=== PATIENT | female | born 2000 | race Caucasian/White ===

== ENCOUNTER 2024-06-01 10:39 | Inpatient (IN) | payer OTHER ==
[2024-06-01 10:55] VITALS: BMI 37.7
[2024-06-01] MEDS: Lactated Ringer's 1,000 ML IV SCH (11:55)
[2024-06-01] MEDS: Penicillin G Potassium 5 MILL.UNITS in Sodium Chloride 0.9% 100 ML IVPB SCH (12:25)
[2024-06-01] MEDS ORDERED: Ondansetron PF 4 MG/2 ML Vial IVP PRN ×4 (12:27→16:41)
[2024-06-01] MEDS ORDERED: hydrALAZINE 20 MG/ML VIAL SLOW IVP PRN ×2 (12:27→20:21)
[2024-06-01] MEDS ORDERED: Methylergonovine 0.2 MG/ML VIAL IM PRN (12:27)
[2024-06-01] MEDS ORDERED: Lidocaine 1% (PF) 30 ML VIAL SC PRN (12:27)
[2024-06-01] MEDS ORDERED: Tranexamic Acid 1,000 MG/10 ML VIAL IVP PRN (12:27)
[2024-06-01] MEDS ORDERED: Carboprost 250 MCG/ML AMP IM PRN (12:27)
[2024-06-01] MEDS ORDERED: HYDROcodone/Acetaminophen 5/325 mg Tablet PO PRN (12:27)
[2024-06-01] MEDS ORDERED: Ibuprofen 800 MG TAB PO PRN (12:27)
[2024-06-01] MEDS ORDERED: fentaNYL 50 mcg/mL 1 mL Vial SLOW IVP PRN ×2 (12:27→16:41)
[2024-06-01] MEDS ORDERED: Misoprostol 200 MCG TAB PR PRN ×2 (12:27→20:21)
[2024-06-01] MEDS ORDERED: Promethazine HCl 25 MG/ML VIAL IM PRN ×4 (12:27→20:21)
[2024-06-01] MEDS ORDERED: Diphenoxylate HCl/Atropine Tablet PO PRN (12:27)
[2024-06-01] MEDS ORDERED: Acetaminophen 500 MG TAB PO PRN (12:27)
[2024-06-01] MEDS ORDERED: Oxytocin 30 units/NS 500 ML 500 ML IV SCH ×4 (12:30→20:21)
[2024-06-01 12:56] LABS: Hematocrit 37.8 % (34.9-44.5); Hemoglobin 12.4 g/dL (12.0-15.5); Mean Corpuscular HGB CONC 32.8 g/dL (32.0-36.0); Mean Corpuscular Hemoglobin 29.1 pg (27.0-33.0); Mean Corpuscular Volume 88.7 fL (81.6-98.3); Mean Platelet Volume 9.7 fL (7.4-10.4); Platelet Count 205 10x3/uL (150-450); RBC Distribution Width 13.8 % (11.5-14.5); Red Blood Cell (RBC) Count 4.26 10x6/uL (3.90-5.03); White Blood Cell (WBC) Count 10.7 10x3/uL (3.5-10.5)
[2024-06-01 13:25] LABS: Hep B Surf Ag - L&D Non-Reactive S/CO (NonReactive)
[2024-06-01 13:27] LABS: Syphilis Antibody Nonreactive (Nonreactive); Syphilis Antibody Index 0.03 S/CO (<1.00 Non-Reactive)
[2024-06-01] MEDS: Penicillin G Potassium 5 MILL.UNITS VIAL ONE (13:35)
[2024-06-01] MEDS: fentaNYL/Ropivacaine Epidural 100 ML ONE (13:46)
[2024-06-01] MEDS ORDERED: Lactated Ringer's 500 ML IV PRN (14:48)
[2024-06-01] MEDS ORDERED: Acetaminophen 325 MG TAB PO PRN (14:48)
[2024-06-01] MEDS ORDERED: ePHEDrine Sulfate 50 MG/10 ML VIAL SLOW IVP PRN (14:48)
[2024-06-01] MEDS ORDERED: diphenhydrAMINE 50 MG/ML VIAL IVP PRN (14:48)
[2024-06-01] MEDS ORDERED: Moisturizing Cream (Eucerin) 113 GM JAR TOP PRN ×2 (14:48→16:41)
[2024-06-01] MEDS ORDERED: Naloxone HCl 0.4 mg/ml Vial IVP PRN ×4 (14:48→16:41)
[2024-06-01] MEDS ORDERED: Communication Order-Pharmacy FS SCH ×2 (15:00→16:45)
[2024-06-01] MEDS ORDERED: fentaNYL 2 mcg/Ropivacaine 0.2% Epidural 100 ML CADD EPIDURAL SCH (15:00)
[2024-06-01] MEDS ORDERED: Ketorolac Tromethamine 30 MG (1 mL) VIAL IVP PRN (16:41)
[2024-06-01] MEDS ORDERED: Meperidine HCl/PF 25 MG (1 mL) VIAL SLOW IVP PRN (16:41)
[2024-06-01] MEDS ORDERED: Naloxone HCl 0.4 mg/ml Vial IV PRN (16:41)
[2024-06-01] MEDS ORDERED: Ketorolac Tromethamine 30 MG (1 mL) VIAL IVP SCH (16:45)
[2024-06-01] MEDS: CEFAZOLIN 2 GM VIAL ONE (18:30)
[2024-06-01] MEDS: Ondansetron PF 4 MG/2 ML Vial ONE ×2 (18:30→18:31)
[2024-06-01] MEDS: Bicitra 30 ML UDCUP ONE (18:30)
[2024-06-01] MEDS: Azithromycin 500 MG VIAL ONE (18:30)
[2024-06-01] MEDS: Misoprostol 100 MCG TAB PO SCH (18:30)
[2024-06-01] MEDS: Dexamethasone 10 MG/ML VIAL ONE (18:30)
[2024-06-01] MEDS: Penicillin G 2.5 MILL.units 2.5 MILL.UNITS in Premix 1 BAG IVPB SCH (18:31)
[2024-06-01] MEDS: Morphine PF 10 MG/10 ML VIAL ONE (18:31)
[2024-06-01] MEDS: Ketorolac Tromethamine 30 MG (1 mL) VIAL ONE (18:31)
[2024-06-01] MEDS: Oxytocin 10 UNITS/ML VIAL ONE (18:31)
[2024-06-01] MEDS: PHENYLEPHRINE-NS 100 MCG/ML 10 ML SYRINGE ONE (18:31)
[2024-06-01] MEDS ORDERED: Bupivacaine/Epinephrine 0.25% 30 ML VIAL ONE (20:00)
[2024-06-01] MEDS ORDERED: Lidocaine 2% MPF 10 ML AMP (For Epidural Use) ONE (20:00)
[2024-06-01] MEDS ORDERED: Bisacodyl 10 MG SUPP PR PRN (20:21)
[2024-06-01] MEDS ORDERED: Meperidine HCl/PF 25 MG (1 mL) VIAL IM PRN (20:21)
[2024-06-01] MEDS ORDERED: Simethicone Chewable 80 MG TAB PO PRN (20:21)
[2024-06-01] MEDS ORDERED: Lanolin Ointment 7 GM TUBE TOP PRN (20:21)
[2024-06-01] MEDS: Docusate 100 MG CAP PO SCH (21:34)
[2024-06-01] MEDS: Ferrous Sulfate 325 MG TAB PO SCH (21:35)
[2024-06-01] MEDS: diphenhydrAMINE 50 MG/ML VIAL IVP PRN (21:40)
[2024-06-01] MEDS: Ondansetron PF 4 MG/2 ML Vial IVP PRN (21:44)
[2024-06-02] MEDS: Ketorolac Tromethamine 30 MG (1 mL) VIAL IVP SCH (02:03)
[2024-06-02 05:13] LABS: Hematocrit 32.4 % (34.9-44.5); Hemoglobin 10.5 g/dL (12.0-15.5); Mean Corpuscular HGB CONC 32.4 g/dL (32.0-36.0); Mean Corpuscular Hemoglobin 29.1 pg (27.0-33.0); Mean Corpuscular Volume 89.8 fL (81.6-98.3); Mean Platelet Volume 10.3 fL (7.4-10.4); Platelet Count 187 10x3/uL (150-450); Red Blood Cell (RBC) Count 3.61 10x6/uL (3.90-5.03); White Blood Cell (WBC) Count 15.4 10x3/uL (3.5-10.5)
[2024-06-02] MEDS: Boostrix 0.5 ML (Tdap) VIAL (>/=7 yrs of age) IM ONE (06:59)
[2024-06-02] MEDS: Prenatal Vitamin 1 TAB PO SCH (07:45)
[2024-06-02] MEDS: HYDROcodone/Acetaminophen 5/325 mg Tablet PO PRN (08:16)
[2024-06-02] MEDS: Ketorolac Tromethamine 30 MG (1 mL) VIAL ONE (15:44)
[2024-06-02] MEDS: Ibuprofen 800 MG TAB PO SCH (21:01)
[2024-06-03] MEDS: HYDROcodone/Acetaminophen 5/325 mg Tablet PO PRN (02:34)
[2024-06-04 19:38] VITALS: BP 117/61; TEMP 98.4
== END 2024-06-04 19:45 | disposition home or self-care (01) | DRG 788 ==
LOC: CSHLD/OP 10:39 → CSHLD 12:19 → CSHPP 19:41
PROVIDERS: ADMIT Family Medicine; ATTEND Family Medicine
PROC: 10D00Z1 Extraction of Products of Conception, Low, Open Approach (ICD-10-PCS; principal; 2024-06-01)
DX: O42.02 Full-term premature rupture of membranes, onset of labor within 24 hours of rupture (principal); O99.824 Streptococcus B carrier state complicating childbirth; Z3A.40 40 weeks gestation of pregnancy; Z37.0 Single live birth; O48.0 Post-term pregnancy; O76 Abnormality in fetal heart rate and rhythm complicating labor and delivery; O69.2XX0 Labor and delivery complicated by other cord entanglement, with compression, not applicable or unspecified; Z79.82 Long term (current) use of aspirin
CPT/HCPCS: 36415; 51702; 85027; 86780; 86850; 86900; 86901; 87340; 99285; J1100; J1200; J1885; J2274; J2405; J2540; J2590; J7120